=== PATIENT | female | born 1980 | race African-American/Black ===

== ENCOUNTER 2017-05-07 19:34 | Emergency (ER) | payer SELFPAY ==
[2017-05-07 19:56] LABS: Bilirubin Negative (Negative); Blood, Urine Negative (Negative); Glucose, Urine (Dipstick) Negative (Negative); Ketone, Urine Negative (Negative); Nitrite Negative (Negative); Protein, Urine (Dipstick) Negative (Neg-Trace); Urobilinogen 0.2 mg/dL (0.2-1.0)
[2017-05-07 20:06] LABS: #Basophils 0.1 thou/uL (0.0-0.2); #Eosinphils 0.1 thou/uL (0.0-0.7); #Lymphocytes 1.9 thou/uL (1.20-3.40); #Monocytes 0.6 thou/uL (0.11-0.59); #Neutrophils 3.5 thou/uL (1.40-6.50); %Basophils 1.1 % (0.0-1.0); %Eosinophils 1.9 % (0.0-10.0); %Lymphocytes 30.3 % (21.0-51.0); %Monocytes 9.8 % (0.0-10.0); Hematocrit 39.1 % (36.0-47.0); Mean Platelet Volume 12.8 fL (7.4-10.4); Red Blood Cell (RBC) Count 4.58 mill/uL (4.20-5.40); White Blood Cell (WBC) Count 6.1 thou/uL (4.8-10.8)
[2017-05-07 20:11] LABS: Anion Gap 12 mmol/L (10-20); BUN (Urea Nitrogen) 10 mg/dL (7.0-18.7); Calc. Creatinine Clearance 0 mL/min (70-130); Calcium 9.2 mg/dL (7.8-10.44); Carbon Dioxide 22 mmol/L (22-29); Chloride 109 mmol/L (98-107); Estimated GFR-MDRD 81
== END 2017-05-07 20:45 | disposition home or self-care (01) ==
LOC: SCSER 19:34
DX: K52.9 Noninfective gastroenteritis and colitis, unspecified (principal)
CPT/HCPCS: 80048; 81003; 81025; 85025; 96360

== ENCOUNTER 2017-12-09 18:39 | Emergency (ER) | payer SELFPAY ==
[2017-12-09] MEDS ORDERED: Diazepam 2.5 MG GEL ONE (19:26)
[2017-12-09] MEDS ORDERED: Ketorolac Tromethamine 30 MG/ML VIAL ONE (19:27)
[2017-12-09] MEDS ORDERED: Diazepam 5 MG TAB ONE (19:27)
--- NOTE | 2017-12-09 20:16 | CT ---
CT CERVICAL SPINE WITHOUT CONTRAST 12/09/17 HISTORY: Pain. Muscle spasm. COMPARISON: None. FINDINGS: The odontoid process is intact. Occipital condyles are intact. Mastoids are clear. there is anteroli sthesis, 2 mm, of C4 over C5 with moderate degenerative disc space changes as well as anterior and po sterior disc osteophyte complexes. No acute fracture or malalignment. Thyroid is enlarged and heterogeneous. Paraspinal soft tissues otherwise normal. IMPRESSION: 1. Mild degenerative changes centered at C4-C5. No acute fracture or malalignment. 2. Heterogeneous appearance of the thyroid for which nonemergent followup ultrasound can be obta ined. POS: [facility]
== END 2017-12-09 20:18 | disposition home or self-care (01) ==
LOC: SCSER 18:39
DX: M54.2 Cervicalgia (principal); F17.210 Nicotine dependence, cigarettes, uncomplicated
CPT/HCPCS: 72125; 96372; J1885

== ENCOUNTER 2018-02-17 12:06 | Emergency (ER) | payer SELFPAY ==
[2018-02-17 13:03] LABS: ALT (SGPT) 11 U/L (8-55); AST (SGOT) 15 U/L (5-34); Albumin 4.2 g/dL (3.5-5.0); Alkaline Phosphatase 48 U/L (40-150); Anion Gap 11 mmol/L (10-20); BUN (Urea Nitrogen) 8 mg/dL (7.0-18.7); Bilirubin, Total 0.6 mg/dL (0.2-1.2); Calc. Creatinine Clearance 0 mL/min (70-130); Calcium 9.3 mg/dL (7.8-10.44); Carbon Dioxide 26 mmol/L (22-29); Chloride 105 mmol/L (98-107); Estimated GFR-MDRD 85; Glucose 97 mg/dL (70-105); Lipase 14 U/L (8-78); Potassium 4.1 mmol/L (3.5-5.1); Protein, Total 7.2 g/dL (6.0-8.3); Sodium 138 mmol/L (136-145)
[2018-02-17 13:05] LABS: #Basophils 0.1 thou/uL (0.0-0.2); #Eosinphils 0.1 thou/uL (0.0-0.7); #Lymphocytes 1.4 thou/uL (1.20-3.40); #Monocytes 0.4 thou/uL (0.11-0.59); #Neutrophils 2.5 thou/uL (1.40-6.50); %Basophils 1.1 % (0.0-1.0); %Eosinophils 1.9 % (0.0-10.0); %Lymphocytes 32.4 % (21.0-51.0); %Monocytes 8.7 % (0.0-10.0); %Neutrophils 55.9 % (42.0-75.0); Hemoglobin 13.1 g/dL (12.0-16.0); Mean Corpuscular HGB CONC 35.7 g/dL (32.0-36.0); Mean Corpuscular Volume 81.4 fL (78.0-98.0); Mean Platelet Volume 11.2 fL (7.4-10.4); Platelet Count 178 thou/uL (130-400); RBC Distribution Width 10.8 % (11.5-14.5); Red Blood Cell (RBC) Count 4.51 mill/uL (4.20-5.40); White Blood Cell (WBC) Count 4.4 thou/uL (4.8-10.8)
[2018-02-17 13:06] LABS: CKMB 0.9 ng/mL (0-6.6); Troponin I 0.011 ng/mL (< 0.028)
--- NOTE | 2018-02-17 13:31 | RAD ---
PORTABLE AP CHEST: Date: 02/17/18 HISTORY: Intermittent chest pain for the past 10 days. COMPARISON: 06/21/14. FINDINGS: Cardiac silhouette and pulmonary vasculature are within normal limits for portable technique of the srini herrera. The lungs remain clear. There has been no interval change when compared to the prior exam. IMPRESSION: No acute cardiopulmonary process. POS: [facility]
[2018-02-17 16:02] LABS: Troponin I 0.012 ng/mL (< 0.028)
== END 2018-02-17 16:24 | disposition home or self-care (01) ==
LOC: SCSER 12:06
DX: R07.89 Other chest pain (principal); F17.210 Nicotine dependence, cigarettes, uncomplicated
CPT/HCPCS: 36415; 71045; 80053; 82553; 83690; 84484; 85025; 93005

== ENCOUNTER 2019-02-04 18:25 | Emergency (ER) | payer SELFPAY ==
[2019-02-04 19:49] LABS: #Basophils 0.1 thou/uL (0.0-0.2); #Eosinphils 0.1 thou/uL (0.0-0.7); #Lymphocytes 1.6 thou/uL (1.20-3.40); #Monocytes 0.5 thou/uL (0.11-0.59); #Neutrophils 5.5 thou/uL (1.40-6.50); %Basophils 0.8 % (0.0-1.0); %Eosinophils 1.4 % (0.0-10.0); %Lymphocytes 20.8 % (21.0-51.0); %Monocytes 6.9 % (0.0-10.0); %Neutrophils 70.2 % (42.0-75.0); Hemoglobin 12.5 g/dL (12.0-16.0); Mean Corpuscular HGB CONC 33.8 g/dL (32.0-36.0); Mean Corpuscular Hemoglobin 29.4 pg (27.0-31.0); Mean Platelet Volume 10.2 fL (7.4-10.4); Platelet Count 151 thou/uL (130-400); RBC Distribution Width 11.6 % (11.5-14.5); Red Blood Cell (RBC) Count 4.24 mill/uL (4.20-5.40); White Blood Cell (WBC) Count 7.8 thou/uL (4.8-10.8)
--- NOTE | 2019-02-04 20:06 | RAD ---
PORTABLE CHEST ONE VIEW: 02/04/19 at 6:56 p.m. HISTORY: Lightheadedness. FINDINGS: Comparison made with exam of 02/17/18. The heart size is normal. The lungs are expanded without focal areas of consolidation, pneumothorace s, or pleural effusions. IMPRESSION: No acute process. POS: [facility]
[2019-02-04 20:07] LABS: ALT (SGPT) 42 U/L (8-55); AST (SGOT) 39 U/L (5-34); Albumin 3.8 g/dL (3.5-5.0); Alkaline Phosphatase 55 U/L (40-150); Anion Gap 13 mmol/L (10-20); BUN (Urea Nitrogen) 12 mg/dL (7.0-18.7); Bilirubin, Total 0.4 mg/dL (0.2-1.2); Calc. Creatinine Clearance 0 mL/min (70-130); Calcium 8.6 mg/dL (7.8-10.44); Carbon Dioxide 22 mmol/L (22-29); Chloride 106 mmol/L (98-107); Estimated GFR-MDRD 81; Globulin 2.5 g/dL (2.4-3.5); Glucose 95 mg/dL (70-105); Potassium 4.1 mmol/L (3.5-5.1); Protein, Total 6.3 g/dL (6.0-8.3); Sodium 137 mmol/L (136-145)
--- NOTE | 2019-02-06 16:56 | EKG ---
Test Reason : Blood Pressure : / mmHG Vent. Rate : 069 BPM Atrial Rate : 069 BPM P-R Int : 164 ms QRS Dur : 072 ms QT Int : 406 ms P-R-T Axes : 059 -01 006 degrees QTc Int : 435 ms Normal sinus rhythm with sinus arrhythmia Possible Left atrial enlargement Left ventricular hypertrophy Abnormal ECG Confirmed by ASHU GLASS DO ([id number]), editor [employer] journal [facility]ES ([id number]) on 02/06/2019 4:56:14 PM Referred By: Confirmed By:ASHU GLASS DO
== END 2019-02-04 21:11 | disposition home or self-care (01) ==
LOC: ERS 18:25
DX: R55 Syncope and collapse (principal); F17.210 Nicotine dependence, cigarettes, uncomplicated
CPT/HCPCS: 36415; 71045; 80053; 84484; 85025; 93005; 96360